=== PATIENT | male | born 1940 | race Caucasian/White ===

== ENCOUNTER → 2023-11-18 | Outpatient (CLI) | payer MEDICARE ==
[~2023-11-18] MED LIST: AMOXICILLIN 8751 TAB PO; BETAPACE 80MG80 MG PO; ELIQUIS5 MG PO; GUAIFEN/CODEIN120 ML PO; Gadoterate 20 ML VIAL IV ONE; HYDROXYUREA500 MG PO; LEVAQUIN 5500 MG/TA1 PO; MEDI-FIRST ASP325 MG PO; PANTOPRAZOLE40 MG PO; PRAVACHOL10 MG PO; WARFARIN SOD5 MG PO
== END ==
LOC: RAD 12:25
DX: G31.9 Degenerative disease of nervous system, unspecified (principal); I67.82 Cerebral ischemia
CPT/HCPCS: A9575